=== PATIENT | female | born 1970 | race Caucasian/White ===

== ENCOUNTER 2017-08-15 08:20 | Outpatient (CLI) | payer OTHER ==
[2017-08-15] MEDS ORDERED: Sodium Chloride 0.9% (PF) 10 ML VIAL ONE (10:00)
[2017-08-15] MEDS ORDERED: EPINEPHrine 1 MG/ML AMP ONE (10:00)
[2017-08-15] MEDS ORDERED: Lidocaine 1% PF 10 ML AMP ONE (10:00)
[2017-08-15] MEDS ORDERED: Iopamidol 300 61% 50 ML VIAL FS ONE (10:00)
--- NOTE | 2017-08-15 12:24 | RAD ---
RIGHT SHOULDER ARTHROGRAM FOR CT: HISTORY: Right shoulder impingement. COMPARISON: None. TECHNIQUE/FINDINGS: The patient was brought to the fluoroscopy suite. All questions were answered. The patient's right arm was prepped and draped in normal sterile fashion. 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 Three mL of Lidocaine was instilled into the superficial and deep soft tissues. Using a 22-gauge nee dle, a total of 10 mL of Contrast solution for CT was instilled into the glenohumeral joint. The pat ient tolerated the procedure well without complication. IMPRESSION: Technically successful fluoroscopic guided arthrogram for CT. POS: [facility]
--- NOTE | 2017-08-15 12:45 | CT ---
CT RIGHT SHOULDER WITH INTRAARTICULAR CONTRAST: HISTORY: M75.49, impingement syndrome. COMPARISON: Arthrogram same date. FINDINGS: Visualized portions of the right lung parenchyma are normal. No adenopathy of the mediastinum. No right-sided rib fracture. Visualized portions of the thyroid are also unremarkable aside from yovana e small sub-5 mm hypodensities. There is moderate degenerative disease of the acromioclavicular joints. The extraarticular and intra articular biceps tendon is intact. Mild free edge superior labral fraying without a displaced tear. ROTATOR CUFF: Rotator cuff is intact without a full-thickness perforation. Minimal undersurface fraying of the ant erior fibers of the supraspinatus tendon. Subscapularis, infraspinatus, and teres minor appear to be intact. MUSCLES: The muscle bulk is normal. No atrophy. IMPRESSION: 1. Very low-grade undersurface fraying of the anteriormost fibers of the supraspinatus tendon withou t a full-thickness perforation. 2. Normal muscle signal and bulk. 3. Mild degree of fraying of superior labrum. 4. Intact biceps tendon. 5. Moderate degenerative disease acromioclavicular joint. POS: [facility]
== END 2017-08-15 08:21 | disposition home or self-care (01) ==
LOC: RAD 08:20
PROVIDERS: ATTEND Orthopaedic Surgery
DX: M75.41 Impingement syndrome of right shoulder (principal); M19.011 Primary osteoarthritis, right shoulder
CPT/HCPCS: 23350; J0171